=== PATIENT | female | born 1950 | race Caucasian/White ===

== ENCOUNTER 2020-10-30 08:49 | Inpatient (IN) | payer MEDICARE ==
[~2020-10-30] VITALS: Ht 167.6 cm; Wt 102.0 kg
[2020-10-30 08:49] VITALS: BP 154/61
[2020-10-30 09:29] LABS: BASO % 0.7 % (0.0-1.0); EOS # 0.1 10*3/uL (0.0-0.4); EOS % 1.5 % (1.0-4.0); HEMATOCRIT 38.3 % (37.0-47.0); LYMPH # 1.1 10*3/uL (1.3-4.4); LYMPH % 20.3 % (27.0-41.0); MEAN CELL VOLUME 89.9 fl (81.0-99.0); MEAN CORPUSCULAR HGB 28.9 pg (27.0-31.0); MEAN CORPUSCULAR HGB CONC 32.1 g/dl (33.0-37.0); MEAN PLATELET VOLUME 9.8 fl (9.6-12.3); MONO # 0.7 10*3/uL (0.1-1.0); MONO % 12.8 % (3.0-9.0); NEUT # 3.5 10*3/uL (2.3-7.9); NEUT % 64.3 % (47.0-73.0); PLATELET COUNT AUTOMATED 208 10*3/uL (130-400); RED BLOOD COUNT 4.26 10*6/uL (4.10-5.10); RED CELL DISTRI WIDTH 13.8 % (0-14.5); WHITE BLOOD COUNT 5.5 10*3/uL (4.8-10.8)
[2020-10-30 09:45] LABS: ALBUMIN 2.9 gm/dl (3.1-4.5); CREATININE 1.2 mg/dL (0.55-1.02); POTASSIUM 4.4 mmol/L (3.5-5.1); TOTAL PROTEIN 5.9 gm/dL (6.4-8.2)
[2020-10-30 09:48] LABS: BILIRUBIN Negative (Negative); BLOOD 1+ (Negative); CLARITY Cloudy (Clear); COLOR Yellow (Yellow); GLUCOSE Negative (Negative); KETONE Negative (Negative); LEUKO ESTERASE 3+ (Negative); NITRITE Negative (Negative); SPECIFIC GRAVITY 1.015 (1.001-1.030)
[2020-10-30 09:53] LABS: THYROID STIM HORMONE (HS) 0.397 uIU/ml (0.358-4.75)
[2020-10-30 09:56] LABS: URINE AMPHETAMINES < 1000 (1000ng/ml); URINE BARBITURATES < 200 (200ng/ml); URINE BENZODIAZEPINES < 200 (200ng/ml); URINE CANNABINOIDS (THC) < 50 (50ng/ml); URINE COCAINE < 300 (300ng/ml); URINE METHADONE < 300 (300ng/ml); URINE OPIATES < 300 (300ng/ml); URINE PHENCYCLIDINE < 25 (25ng/ml)
[2020-10-30] MEDS ORDERED: TYLENOL325 M2 PO (09:56)
[2020-10-30] MEDS ORDERED: PROAIR HFA8.5 GM INH (09:57)
[2020-10-30] MEDS ORDERED: BASAG SOL SC (09:58)
[2020-10-30] MEDS ORDERED: COLACE100 MG PO (09:58)
[2020-10-30] MEDS ORDERED: B-121000 MCG PO (09:59)
[2020-10-30] MEDS ORDERED: ELIQUIS5 M1 PO (09:59)
[2020-10-30] MEDS ORDERED: HUMALOG100 UNIT/2 SC (10:02)
[2020-10-30] MEDS ORDERED: LASIX40 MG PO (10:03)
[2020-10-30] MEDS ORDERED: LACTAID FAS9000 UNIT PO (10:03)
[2020-10-30] MEDS ORDERED: COZAAR100 MG PO (10:04)
[2020-10-30] MEDS ORDERED: TOPROL XL50 M1 PO (10:05)
[2020-10-30] MEDS ORDERED: MELATONIN3 MG PO (10:05)
[2020-10-30] MEDS ORDERED: NORVASC10 MG PO (10:06)
[2020-10-30] MEDS ORDERED: DAILY VALUE1 EACH PO (10:06)
[2020-10-30] MEDS ORDERED: POTASSIUM CHLO20 ME3 PO (10:07)
[2020-10-30] MEDS ORDERED: PRALUENT P75 MG/1 ML SQ (10:07)
[2020-10-30 10:08] LABS: WBC TNTC wbc/hpf (0-5)
[2020-10-30] MEDS ORDERED: TRULICITY1.5 MG/0.5 SC (10:08)
[2020-10-30 10:09] LABS: BACTERIA 4+
[2020-10-30] MEDS ORDERED: VASCEPA1 G1 PO (10:09)
[2020-10-30 12:40] VITALS: BP 119/48
[2020-10-30 16:00] VITALS: BP 96/47
[2020-10-30 20:00] VITALS: BP 125/56
[2020-10-31] VITALS: BP 124/51; BP 143/85
[2020-10-31 06:19] LABS: BASO % 0.7 % (0.0-1.0); EOS # 0.1 10*3/uL (0.0-0.4); EOS % 1.3 % (1.0-4.0); HEMATOCRIT 37.1 % (37.0-47.0); LYMPH % 18.9 % (27.0-41.0); MEAN CORPUSCULAR HGB 28.5 pg (27.0-31.0); MEAN CORPUSCULAR HGB CONC 32.1 g/dl (33.0-37.0); MONO # 0.7 10*3/uL (0.1-1.0); MONO % 13.5 % (3.0-9.0); NEUT # 3.5 10*3/uL (2.3-7.9); NEUT % 65.4 % (47.0-73.0); PLATELET COUNT AUTOMATED 207 10*3/uL (130-400); RED BLOOD COUNT 4.17 10*6/uL (4.10-5.10); RED CELL DISTRI WIDTH 13.8 % (0-14.5); WHITE BLOOD COUNT 5.3 10*3/uL (4.8-10.8)
[2020-10-31 06:24] LABS: ALBUMIN 2.5 gm/dl (3.1-4.5); CREATININE 1.12 mg/dL (0.55-1.02); POTASSIUM 3.7 mmol/L (3.5-5.1)
[2020-10-31 06:32] LABS: THYROID STIM HORMONE (HS) 0.286 uIU/ml (0.358-4.75); TOTAL PROTEIN 5.5 gm/dL (6.4-8.2)
[2020-10-31 08:00] VITALS: BP 130/68
[2020-10-31 08:09] LABS: VITAMIN D, 25-HYDROXY 50.4 ng/mL (30-100)
[2020-10-31 12:00] VITALS: BP 128/78
[2020-10-31 16:00] VITALS: BP 121/52
[2020-10-31 20:00] VITALS: BP 117/52
[2020-11-01] VITALS: BP 123/51
[2020-11-01 08:00] VITALS: BP 124/47
[2020-11-01 12:00] VITALS: BP 125/44
[2020-11-01 16:00] VITALS: BP 111/50
[2020-11-01 16:40] LABS: BASO % 0.3 % (0.0-1.0); EOS % 0.3 % (1.0-4.0); HEMATOCRIT 36.3 % (37.0-47.0); LYMPH # 1.2 10*3/uL (1.3-4.4); LYMPH % 20.5 % (27.0-41.0); MEAN CELL VOLUME 86.4 fl (81.0-99.0); MEAN CORPUSCULAR HGB 28.6 pg (27.0-31.0); MEAN CORPUSCULAR HGB CONC 33.1 g/dl (33.0-37.0); MEAN PLATELET VOLUME 9.6 fl (9.6-12.3); MONO # 0.9 10*3/uL (0.1-1.0); MONO % 15.6 % (3.0-9.0); NEUT # 3.8 10*3/uL (2.3-7.9); NEUT % 63.1 % (47.0-73.0); PLATELET COUNT AUTOMATED 198 10*3/uL (130-400); RED CELL DISTRI WIDTH 13.7 % (0-14.5)
[2020-11-01 20:00] VITALS: BP 113/50
[2020-11-02] VITALS: BP 115/66
[2020-11-02 06:31] LABS: CREATININE 1.56 mg/dL (0.55-1.02)
[2020-11-02 08:00] VITALS: BP 113/46
[2020-11-02 12:00] VITALS: BP 107/46
[2020-11-02 16:00] VITALS: BP 112/48
[2020-11-02 20:00] VITALS: BP 108/49
[2020-11-03 00:24] VITALS: BP 115/49
[2020-11-03 06:29] LABS: BASO % 0.5 % (0.0-1.0); EOS % 0.5 % (1.0-4.0); HEMATOCRIT 34.3 % (37.0-47.0); LYMPH # 0.9 10*3/uL (1.3-4.4); LYMPH % 13.8 % (27.0-41.0); MEAN CELL VOLUME 87.9 fl (81.0-99.0); MEAN CORPUSCULAR HGB 28.2 pg (27.0-31.0); MEAN CORPUSCULAR HGB CONC 32.1 g/dl (33.0-37.0); MEAN PLATELET VOLUME 9.5 fl (9.6-12.3); MONO # 0.7 10*3/uL (0.1-1.0); MONO % 10.8 % (3.0-9.0); NEUT # 4.7 10*3/uL (2.3-7.9); NEUT % 73.9 % (47.0-73.0); PLATELET COUNT AUTOMATED 180 10*3/uL (130-400); RED CELL DISTRI WIDTH 13.8 % (0-14.5); WHITE BLOOD COUNT 6.4 10*3/uL (4.8-10.8)
[2020-11-03 07:04] LABS: ALBUMIN 2.5 gm/dl (3.1-4.5); CREATININE 1.73 mg/dL (0.55-1.02); POTASSIUM 3.7 mmol/L (3.5-5.1); TOTAL PROTEIN 5.4 gm/dL (6.4-8.2)
[2020-11-03 08:00] VITALS: BP 114/49
[2020-11-03] MEDS ORDERED: LEVOFLOXACIN500 MG PO (09:54)
== END 2020-11-03 17:22 | DRG 70 ==
LOC: ED 08:49 → EDHOLD 12:03 → 5E 12:03
PROVIDERS: Internal Medicine; Registered Nurse; Student in an Organized Health Care Education/Training Program; ADMIT Internal Medicine; ATTEND Internal Medicine
DX: G93.41 Metabolic encephalopathy (principal); N17.0 Acute kidney failure with tubular necrosis; N39.0 Urinary tract infection, site not specified; E44.0 Moderate protein-calorie malnutrition; I50.22 Chronic systolic (congestive) heart failure; F32.9 Major depressive disorder, single episode, unspecified; I48.91 Unspecified atrial fibrillation; E87.8 Other disorders of electrolyte and fluid balance, not elsewhere classified; F43.21 Adjustment disorder with depressed mood; G47.33 Obstructive sleep apnea (adult) (pediatric); I11.0 Hypertensive heart disease with heart failure; E78.5 Hyperlipidemia, unspecified; F41.9 Anxiety disorder, unspecified; Z20.822 Contact with and (suspected) exposure to COVID-19; E11.40 Type 2 diabetes mellitus with diabetic neuropathy, unspecified; I25.10 Atherosclerotic heart disease of native coronary artery without angina pectoris; Z86.16 Personal history of COVID-19; Z88.8 Allergy status to other drugs, medicaments and biological substances; Z88.1 Allergy status to other antibiotic agents; Z88.0 Allergy status to penicillin; Z95.1 Presence of aortocoronary bypass graft; I25.2 Old myocardial infarction; Z86.718 Personal history of other venous thrombosis and embolism; Z80.1 Family history of malignant neoplasm of trachea, bronchus and lung; Z79.899 Other long term (current) drug therapy; Z68.36 Body mass index [BMI] 36.0-36.9, adult